=== PATIENT | male | born 1970 | race Caucasian/White ===

== ENCOUNTER 2017-05-14 02:12 | Observation (INO) | payer BC ==
--- NOTE | 2017-05-14 02:27 | ED ---
Chest Pain HPI - General Chief Complaint: Chest Pain Stated Complaint: Chest Pain Time Seen by Provider: 05/14/17 02:26 Source: patient Mode of arrival: ambulatory Limitations: no limitations - History of Present Illness Initial Comments: This patient's 47-year-old man who presents to be evaluated for chest pain that radiates to his left arm. He states that it came on at rest, initially in the afternoon, and then worsened tonight. The patient states that he previously had this and was told that it represented angina. Today's symptoms were initially mild, but now more moderate. He has not noted worsening or relieving factors. Symptoms are constant. No associated symptoms. MD Complaint: chest pain -: hour(s) Onset: during rest Pain Location: substernal Pain Radiation: LUE Severity: moderate Quality: aching Consistency: constant Improves With: nothing Worsens With: nothing Treatments Prior to Arrival: none - Related Data Home Medications Medication Instructions Recorded Confirmed No Known Home Medications [No 05/14/17 05/14/17 Known Home Medications] Allergies Allergy/AdvReac Type Severity Reaction Status Date / Time No Known Allergies Allergy Verified 05/14/17 02:20 Review of Systems ROS Statement: Those systems with pertinent positive or pertinent negative responses have been documented in the HPI. ROS Other: All systems not noted in ROS Statement are negative. Constitutional: Denies: fever, chills Respiratory: Denies: cough, dyspnea Cardiovascular: Reports: as per HPI, chest pain. Denies: palpitations, edema, syncope Gastrointestinal: Denies: abdominal pain, nausea, vomiting, diarrhea Genitourinary: Denies: dysuria, hematuria Musculoskeletal: Denies: back pain Skin: Denies: rash Neurological: Denies: headache, weakness, numbness EKG Findings - EKG Results: EKG: interpreted by BRUCE WONG, sinus rhythm (Rate 62 bpm), normal axis, normal QRS, normal ST/T, no acute changes - MS, Pacemaker, Normal: Normal tracing: normal tracing Past Medical History Past Medical History: Chest Pain / Angina History of Any Multi-Drug Resistant Organisms: None Reported Past Surgical History: Orthopedic Surgery Additional Past Surgical History / Comment(s): Right shoulder Past Psychological History: No Psychological Hx Reported Smoking Status: Never smoker Past Alcohol Use History: Occasional Past Drug Use History: None Reported General Exam Limitations: no limitations General appearance: alert, in no apparent distress Head exam: Present: atraumatic, normocephalic Eye exam: Present: normal appearance. Absent: scleral icterus, conjunctival injection Neck exam: Present: normal inspection, full ROM Respiratory exam: Present: normal lung sounds bilaterally. Absent: respiratory distress, wheezes, rales, rhonchi, stridor, chest wall tenderness Cardiovascular Exam: Present: regular rate, normal rhythm, normal heart sounds. Absent: systolic murmur, diastolic murmur, rubs, gallop GI/Abdominal exam: Present: soft. Absent: distended, tenderness, guarding, rebound, mass Extremities exam: Present: normal inspection, normal capillary refill. Absent: pedal edema, calf tenderness Back exam: Present: normal inspection. Absent: CVA tenderness (R), CVA tenderness (L) Neurological exam: Present: alert Skin exam: Present: warm, dry, intact, normal color. Absent: rash Course Vital Signs 05/14/17 05/14/17 05/14/17 02:16 03:12 03:36 Temperature 97.4 F L Pulse Rate 61 58 L 57 L Respiratory 20 16 16 Rate Blood Pressure 139/75 130/74 O2 Sat by Pulse 99 98 98 Oximetry 05/14/17 05/14/17 05/14/17 03:42 03:45 05:36 Temperature 97.6 F Pulse Rate 67 53 L Respiratory 16 16 Rate Blood Pressure 117/60 113/56 133/63 O2 Sat by Pulse 97 99 Oximetry Disposition Clinical Impression: Chest pain Disposition: ADMITTED IP TO THIS [facility] Condition: Good Referrals: Nitish Gillespie MD [Primary Care Provider] - 1-2 days
[2017-05-14] MEDS ORDERED: NITROGLYCERIN SL TABS 0.4 MG TAB SUBLINGUAL STA (02:36)
[2017-05-14] MEDS ORDERED: ASPIRIN 81 MG PO STA (02:36)
[2017-05-14 02:51] LABS: Basophils % (A) 0 %; Eosinophils # (A) 0.1 k/uL (0-0.7); Eosinophils % (A) 2 %; HCT 47.4 % (39.0-53.0); HGB 16.1 gm/dL (13.0-17.5); Lymphocytes % (A) 29 %; MCHC 33.9 g/dL (31.0-37.0); MCV 91.3 fL (80.0-100.0); Mean Platelet Volume 7.1; Monocytes # (A) 0.6 k/uL (0-1.0); Monocytes % (A) 8 %; Neutrophils # (A) 4.1 k/uL (1.3-7.7); Neutrophils % (A) 59 %; Platelet Count 257 k/uL (150-450); RDW 12.4 % (11.5-15.5)
[2017-05-14 02:59] LABS: D-Dimer 0.38 mg/L FEU (<0.60); Partial Thromboplastin Time 22.6 sec (22.0-30.0); Prothrombin Time 9.6 sec (9.0-12.0)
--- NOTE | 2017-05-14 03:09 | XR ---
EXAM: XR Chest, 1 View CLINICAL HISTORY: Chest pain TECHNIQUE: Frontal view of the chest. COMPARISON: No relevant prior studies available. FINDINGS: Lungs: Hypoventilatory examination. Nonspecific bibasilar opacities. Pleural space: Unremarkable. No pneumothorax. Heart: Prominence of the cardiomediastinal silhouette is likely in part due to low lung volumes. Mediastinum: Prominence of the central bronchovascular structures is likely in part due to volume loss. Bones/joints: No acute osseous abnormality. IMPRESSION: Hypoventilatory examination. Nonspecific bibasilar opacities may represent atelectasis. An infectious or inflammatory process is not excluded.
[2017-05-14 03:14] LABS: ALT 37 U/L (21-72); AST 24 U/L (17-59); Albumin 4.2 g/dL (3.5-5.0); Alkaline Phosphatase 113 U/L (38-126); Amylase 34 U/L (30-110); Anion Gap 12 mmol/L; Blood Urea Nitrogen 20 mg/dL (9-20); Calcium 10.1 mg/dL (8.4-10.2); Carbon Dioxide 23 mmol/L (22-30); Chloride 106 mmol/L (98-107); Glucose 119 mg/dL (74-99); Lipase 51 U/L (23-300); Potassium 4.2 mmol/L (3.5-5.1); Sodium 141 mmol/L (137-145); Total Bilirubin 0.3 mg/dL (0.2-1.3); Total Protein 6.7 g/dL (6.3-8.2)
[2017-05-14 03:17] LABS: Creatine Kinase 246 U/L (55-170)
[2017-05-14 03:30] LABS: Creatine Kinase MB 1.5 ng/mL (0.0-2.4); Troponin I <0.012 ng/mL (0.000-0.034)
[2017-05-14] MEDS ORDERED: MORPHINE SULFATE 4MG/4ML SYRG IVP STA (03:39)
[2017-05-14] MEDS ORDERED: NITROGLYCERIN SL TABS 0.4 MG TAB SUBLINGUAL PRN (05:33)
[2017-05-14] MEDS ORDERED: MORPHINE ORAL SOLN 10 MG/5 ML CUP PO PRN (05:57)
[2017-05-14 06:18] VITALS: BMI 34.8
[2017-05-14] MEDS ORDERED: PNEUMOCOCCAL VACC-PNEUMOVAX 23 25 MCG/0.5 ML VIAL IM ONE (06:31)
[2017-05-14 09:56] LABS: Creatine Kinase 184 U/L (55-170)
--- NOTE | 2017-05-14 09:59 | US ---
EXAMINATION TYPE: US abdomen complete DATE OF EXAM: 05/14/2017 COMPARISON: NONE CLINICAL HISTORY: ruq pain. Pt states chest/ RUQ pain EXAM MEASUREMENTS: Liver Length: 18.1 cm Gallbladder Wall: 0.2 cm CBD: 0.4 cm Spleen: 9.0 cm Right Kidney: 12.0 x 5.5 x 5.5 cm Left Kidney: 11.5 x 6.6 x 6.3 cm Pancreas: wnl, tail obscured by overlying bowel gas Liver: Enlarged Gallbladder: wnl Evidence for sonographic Cooper's sign: Yes CBD: wnl Spleen: wnl Right Kidney: wnl Left Kidney: wnl Upper IVC: wnl Abd Aorta: Ectatic, distal portion obscured by bowel gas The liver is homogenous. The intrahepatic portion of the IVC and proximal abdominal aorta are within normal limits. There is no evidence of cholelithiasis. Common bile duct is unremarkable. The visu alized portions of the pancreas are homogenous. The spleen is unremarkable. Kidneys are symmetric a nd free of hydronephrosis. No renal lesions are seen. IMPRESSION: Hepatomegaly.
[2017-05-14 10:06] LABS: Creatine Kinase MB 1.5 ng/mL (0.0-2.4); Troponin I <0.012 ng/mL (0.000-0.034)
[2017-05-14 11:52] VITALS: BP 135/65; PULSE 57; RESP 18; TEMP 97.8
--- NOTE | 2017-05-14 12:54 | P.DS ---
Providers Date of admission: 05/14/17 05:33 Expected date of discharge: 05/14/17 Attending physician: Nitish Gillespie Consults: 05/14/17 05:33 Consult Physician Routine Consulting Provider: Davi Miller Consult Reason/Comments: chest pain Do you want consulting provider notified?: Yes Primary care physician: Nitish [facility] Course: This document serves as H&P and discharge summary 47-year-old male who presented to the emergency room with a chief complaint of chest pain. The patient states he was at home resting yesterday afternoon when he started to feel some chest discomfort. He attributed this discomfort to heartburn. He states that he went to bed and around 1:30 in the morning he woke up with severe chest discomfort that radiated to his left arm. His brought him to the ER for further evaluation. The patient states his pain is currently 2/10 and describes it as "minimal discomfort". Denies chest pain currently. Denies left arm pain. Patient denies shortness of breath. Denies cough or sputum production. Denies nausea or vomiting. Denies lightheadedness or discomfort. Patient denies abdominal pain at this time but states he was having some right sided abdominal pain when the program manager slp pushed on his abdomen. The patient underwent an ultrasound of the abdomen. US revealed gallbladder is within normal limits. No evidence of cholelithiasis. Common bile duct is unremarkable. It did show hepatomegaly. CBC is within normal limits. PT and INR within normal limits. D-dimer 0.38. BMP unremarkable. CK 246 and 184. Troponins negative x 2. No further workup from a cardiology standpoint. The patient was deemed stable for discharge per Dr. Venegas. He is to follow up with Dr. Venegas tomorrow morning in the office for further evaluation. DISCHARGE DIAGNOSIS: Chest pain with radiation into left arm, troponins negative x 2, acute coronary syndrome ruled out Right side abdominal pain, US abdomen revealed gallbladder WNL and no evidence of cholelithiasis, etiology unclear, pt. to follow up with Dr. Venegas tomorrow Obesity: BMI 34.8 Nurse practitioner note has been reviewed by physician. Signing provider agrees with the documented findings, assessment, and plan of care. Patient Condition at Discharge: Stable Plan - Discharge Summary New Discharge Prescriptions: No Action No Known Home Medications [No Known Home Medications] Discharge Medication List No Known Home Medications [No Known Home Medications] 05/14/17 [History] Follow up Appointment(s)/Referral(s): Uri Venegas Jr, DO [Doctor of Osteopathic Medicine] - 1-2 Days (Appointment made for SundayMay 15 @ 10:15am.) Patient Instructions/Handouts: Angina (DC) Discharge Disposition: HOME SELF-CARE
--- NOTE | 2017-05-14 13:46 | P.CRDCN ---
History of Present Illness Consult date: 05/14/17 History of present illness: Mr. Mukherjee is a pleasant 47-year-old male past medical history significant for obesity. He denies history of coronary artery disease, hypertension, diabetes mellitus or dyslipidemia. We have been asked to see him in consultation for complaints of chest pain. He states yesterday afternoon after eating a large meal of spaghetti and garlic bread he developed pain in the right anterior chest wall yesterday. The pain was described as a gas like pain that was radiating from right to left and intermittent in nature lasting 1- 2 minutes at a time. He went to bed around and woke up around midnight feeling sweaty and turned on the fan then around 0130 woke up with same pain in the right chest wall that was sharp and this time radiated down the left arm, lasted 1-2 min and went away. The pain was much more intense this time so he decided to present to ED. He has had no further symptoms since admission. Telemetry tracings have been unremarkable. EKG reveals sinus mechanism with no acute ST or T-wave abnormalities. Chest xray shows bibasilar opacities possibly suggestive of an infectious process. Laboratory data reviewed, hemoglobin 16.1, platelets 257, d-dimer 0.3, potassium 4.2, magnesium 2.0, creatinine 1.0, cardiac enzymes negative 1. Review of Systems At the time of my exam: CONSTITUTIONAL: Denies fever. Denies chills. EYES: Denies blurred vision. Denies vision changes. Denies eye pain. EARS, NOSE, MOUTH & THROAT: Denies headache. Denies sore throat. Denies ear pain. CARDIOVASCULAR: Denies chest pain. Denies shortness of breath. Denies orthopnea. Denies PND. Denies palpitations. RESPIRATORY: Denies cough. GASTROINTESTINAL: Denies abdominal pain. Denies diarrhea. Denies constipation. Denies nausea. Denies vomiting. MUSCULOSKELETAL: Denies myalgias. INTEGUMENTARY: Denies pruitis. Denies rash. NEUROLOGIC: Denies numbness. Denies tingling. Denies weakness. PSYCHIATRIC: Denies anxiety. Denies depression. ENDOCRINE: Denies fatigue. Denies weight change. Denies polydipsia. Denies polyurina. GENITOURINARY: Denies burning, hematuria or urgency with micturation. HEMATOLOGIC: Denies history of anemia. Denies bleeding. Past Medical History Past Medical History: Chest Pain / Angina History of Any Multi-Drug Resistant Organisms: None Reported Past Surgical History: Orthopedic Surgery Additional Past Surgical History / Comment(s): Right shoulder Past Anesthesia/Blood Transfusion Reactions: No Reported Reaction Smoking Status: Never smoker - Past Family History Mother Family Medical History: Diabetes Mellitus Father Family Medical History: Hypertension Medications and Allergies Home Medications Medication Instructions Recorded Confirmed Type No Known Home Medications [No 05/14/17 05/14/17 History Known Home Medications] Allergies Allergy/AdvReac Type Severity Reaction Status Date / Time No Known Allergies Allergy Verified 05/14/17 08:20 Physical Exam Vitals: Vital Signs Temp Pulse Resp BP BP Pulse Ox 05/14/17 08:00 16 05/14/17 06:25 16 05/14/17 06:12 97.9 F 16 148/79 99 05/14/17 05:36 53 L 16 133/63 99 05/14/17 03:45 67 16 113/56 97 05/14/17 03:42 97.6 F 117/60 05/14/17 03:36 57 L 16 98 05/14/17 03:12 58 L 16 130/74 98 05/14/17 02:16 97.4 F L 61 20 139/75 99 Intake and Output 05/13/17 05/14/17 05/14/17 22:59 06:59 14:59 Other: Voiding Method Toilet # Voids 1 Weight 110.1 kg Blood pressure 140/79 heart rate 53 afebrile maintaining oxygen saturation on room air GENERAL: This is a 47-year-old occasion male in no apparent distress at the time of my examination. Obese. HEENT: Head is atraumatic, normocephalic. Pupils are equal, round. Sclerae anicteric. Conjunctivae are clear. Mucous membranes of the mouth are moist. Neck is supple. There is no jugular venous distention. No carotid bruit is heard. LUNGS: Clear to auscultation no wheezes, rales or rhonchi. No chest wall tenderness is noted on palpation or with deep breathing. HEART: Regular rate and rhythm without murmurs, rubs or gallops. S1 and S2 heard. ABDOMEN: Soft, right upper quadrant tenderness on palpation. Bowel sounds are heard. No organomegaly noted. EXTREMITIES: No evidence of peripheral edema and no calf tenderness noted. VASCULAR: Radial and dorsalis pedis pulses palpated, no evidence of clubbing. NEUROLOGIC: Patient is awake, alert and oriented x3. Results 05/14/17 02:37 05/14/17 02:37 Cardiac Enzymes 05/14/17 05/14/17 Range/Units 02:37 02:37 AST 24 (17-59) U/L CK-MB (CK-2) 1.5 (0.0-2.4) ng/mL Troponin I <0.012 (0.000-0.034) ng/mL Coagulation 05/14/17 Range/Units 02:37 PT 9.6 (9.0-12.0) sec APTT 22.6 (22.0-30.0) sec CBC 05/14/17 Range/Units 02:37 WBC 7.0 (3.8-10.6) k/uL RBC 5.20 (4.30-5.90) m/uL Hgb 16.1 (13.0-17.5) gm/dL Hct 47.4 (39.0-53.0) % Plt Count 257 (150-450) k/uL Comprehensive Metabolic Panel 05/14/17 Range/Units 02:37 Sodium 141 (137-145) mmol/L Potassium 4.2 (3.5-5.1) mmol/L Chloride 106 (98-107) mmol/L Carbon Dioxide 23 (22-30) mmol/L BUN 20 (9-20) mg/dL Creatinine 1.00 (0.66-1.25) mg/dL Glucose 119 H (74-99) mg/dL Calcium 10.1 (8.4-10.2) mg/dL AST 24 (17-59) U/L ALT 37 (21-72) U/L Alkaline Phosphatase 113 (38-126) U/L Total Protein 6.7 (6.3-8.2) g/dL Albumin 4.2 (3.5-5.0) g/dL Current Medications Generic Name Dose Route Start Last Admin Trade Name Freq PRN Reason Stop Dose Admin Aspirin 325 mg 05/15/17 09:00 Aspirin PO DAILY MARIANA Morphine Sulfate 12 mg 05/14/17 05:57 05/14/17 06:21 Morphine Oral Casi 2mg/Ml PO 12 mg Q4HR PRN Administration Chest Pain Nitroglycerin 0.4 mg 05/14/17 05:33 05/14/17 08:06 Nitrostat SUBLINGUAL 0.4 mg Q5M PRN Administration Chest Pain Intake and Output 05/13/17 05/14/17 05/14/17 22:59 06:59 14:59 Other: Voiding Method Toilet # Voids 1 Weight 110.1 kg 05/14/17 02:37 05/14/17 02:37 Assessment and Plan Assessment: ASSESSMENT 1. Chest pain, atypical 2. Abdominal pain 3. Obesity PLAN Continue to obtain serial cardiac enzymes to rule out acute coronary event. Obtain ultrasound of the abdomen to assess for gallbladder dysfunction. Further recommendations to follow. Thank you kindly for this consultation. Nurse Practitioner note has been reviewed, I agree with a documented findings and plan of care. Patient was seen and examined.
[2017-05-15] MEDS ORDERED: ASPIRIN 325 MG TAB PO SCH (09:00)
== END 2017-05-14 13:08 | disposition home or self-care (01) ==
LOC: EC 02:12 → 3OBS 05:33
PROVIDERS: ADMIT Family Medicine; ATTEND Family Medicine
DX: R07.89 Other chest pain (principal); R10.11 Right upper quadrant pain; E66.9 Obesity, unspecified; Z68.34 Body mass index [BMI] 34.0-34.9, adult; R61 Generalized hyperhidrosis; Z82.49 Family history of ischemic heart disease and other diseases of the circulatory system; Z83.3 Family history of diabetes mellitus; Z23 Encounter for immunization
CPT/HCPCS: 36415; 71045; 76700; 80053; 82150; 82550; 82553; 83690; 83735; 84484; 85025; 85379; 85610; 85730; 90732; 93005; 96374; 99285

== ENCOUNTER → 2017-05-16 | Outpatient (CLI) | payer BC ==
--- NOTE | 2017-05-16 10:33 | NM ---
EXAMINATION TYPE: NM stress cardiolite complete DATE OF EXAM: 05/16/2017 COMPARISON: NONE HISTORY: Chest pain TECHNIQUE: After the intravenous administration of 10.21 mCi Tc 99m Sestamibi - Rest images obtained 65 minutes post injection. The patient exercised using a JAKE protocol and 1 minute prior to peak exercise was injected with 26 mCi Tc 99m Sestamibi - Stress images obtained 10 minutes post injectio n. FINDINGS: No fixed defects are evident. There is subtle diminished radiotracer accumulation along the anterior lateral wall on the stress images. This radiotracer accumulation appears more normal on the resting i mages. Gated wall motion is normal. The ejection fraction of 50% is within normal limits. Polar maps suggest a reversible defect along the anterior lateral wall. This finding may be subtle on the SPECT imaging. IMPRESSION: 1. Clinical consideration of mild stress-induced ischemic change anterior lateral wall.
--- NOTE | 2017-05-17 08:44 | ECHOF ---
Referral Reason:R07.1 chest pain on breathing MEASUREMENTS -------- HEIGHT: 177.8 cm WEIGHT: 108.0 kg BP: 154/98 RVIDd: 2.8 cm (< 3.3) IVSd: 1.1 cm (0.6 - 1.1) LVIDd: 4.9 cm (3.9 - 5.3) LVPWd: 1.1 cm (0.6 - 1.1) IVSs: 1.5 cm LVIDs: 3.1 cm LVPWs: 1.5 cm LAESV Index (A-L): 22.75 ml/m Ao Diam: 3.4 cm (2.0 - 3.7) AV Cusp: 2.0 cm (1.5 - 2.6) LA Diam: 3.2 cm (2.7 - 3.8) MV EXCURSION: 12.148 mm (> 18.000) MV EF SLOPE: 55 mm/s (70 - 150) EPSS: 1.2 cm MV E Andre: 0.96 m/s MV DecT: 393 ms MV A Andre: 1.02 m/s MV E/A Ratio: 0.94 AV maxP.98 mmHg AV meanP.16 mmHg RAP: 5.00 mmHg RVSP: 12.42 mmHg FINDINGS -------- Sinus rhythm. This was a technically adequate study. The left ventricular size is normal. There is borderline concentric left ventricular hypertrophy. Overall left ventricular systolic function is normal with, an EF between 55 - 60 %. The right ventricle is normal in size and function. Normal LA size by volume 22+/-6 ml/m2. The right atrium is normal in size. Aortic valve is trileaflet and is mildly thickened. There is no evidence of aortic regurgitation. There is no evidence of aortic stenosis. The mitral valve leaflets are mildly thickened. There is trace to mild mitral regurgitation. Trace tricuspid regurgitation present. Right ventricular systolic pressure is normal at < 35 mmHg. There is no evidence of pulmonary hypertension. Trace/mild (physiologic) pulmonic regurgitation. The aortic root size is normal. Normal inferior vena cava with normal inspiratory collapse consistent with estimated right atrial pre ssure of 5 mmHg. There is no pericardial effusion. CONCLUSIONS -------- 1. Sinus rhythm. 2. This was a technically adequate study. 3. The left ventricular size is normal. 4. There is borderline concentric left ventricular hypertrophy. 5. Overall left ventricular systolic function is normal with, an EF between 55 - 60 %. 6. Normal LA size by volume 22+/-6 ml/m2. 7. Aortic valve is trileaflet and is mildly thickened. 8. The mitral valve leaflets are mildly thickened. 9. There is trace to mild mitral regurgitation. 10. Trace tricuspid regurgitation present. 11. Right ventricular systolic pressure is normal at < 35 mmHg. 12. There is no evidence of pulmonary hypertension. 13. Trace/mild (physiologic) pulmonic regurgitation. 14. The aortic root size is normal. 15. There is no pericardial effusion. DOOR CLOSER MECHANIC: David Peraza RDCS
--- NOTE | 2017-05-17 09:36 | EST ---
EXERCISE STRESS DATE OF SERVICE: 05/16/2017 AGE: 47 SEX: Male HT: 5'10" WT: 238 pounds PROTOCOL: Cardiolite STAGE: IV DURATION OF EXERCISE: 11 minutes HEART RATE REST: 56 BLOOD PRESSURE REST: 145/83 MAXIMUM HEART RATE ACHIEVED: 146 MAXIMUM BLOOD PRESSURE: 204/63 85% MPHR: 146 100% MPHR: 172 METS: 12.1 INDICATIONS: Chest pain. CLINICAL INFORMATION: Patient admitted with chest pain. Baseline heart rate 56 beats per minute. Baseline blood pressure 145/83 mmHg. Baseline 12-lead ECG shows normal sinus rhythm with early repolarization abnormality. Patient exercised on Edson protocol for 11 minutes achieving a peak heart rate of 146 beats per minute. There was no ECG evidence for ischemia. No arrhythmias were noted. Hypertensive response to exercise was noted. Peak blood pressure was 204/63 mmHg. Hypertensive response to exercise was noted. No arrhythmias noted. MMODL / IJN: [id number] /
== END | disposition home or self-care (01) ==
LOC: RADNMMAIN 06:56
PROVIDERS: ATTEND Family Medicine
DX: I08.0 Rheumatic disorders of both mitral and aortic valves (principal); R94.31 Abnormal electrocardiogram [ECG] [EKG]; R03.0 Elevated blood-pressure reading, without diagnosis of hypertension; R07.1 Chest pain on breathing
CPT/HCPCS: 93017; 93306; 78452; A9500

== ENCOUNTER 2017-06-11 10:44 | Day surgery (SDC) | payer BC ==
[2017-06-07 17:41] VITALS: BMI 34.4
[~2017-06-11 10:44] MED LIST: ALPRAZolam 0.25 MG TAB PO PRN; ASPIRIN 325 MG TAB PO ONE; SODIUM CHLORIDE 0.9% 1,000 ML in EMPTY BAG 1 BAG IV ONE
[2017-06-11] MEDS ORDERED: IV FLUID CONTINUATION 900 ML IV ONE (12:08)
[2017-06-11] MEDS ORDERED: fentaNYL (PF) 50 MCG/ML 2 ML AMP ONE (12:12)
[2017-06-11] MEDS ORDERED: MIDAZOLAM 2 MG/2 ML VIAL ONE (12:12)
[2017-06-11] MEDS ORDERED: MIDAZOLAM 2 MG/2 ML VIAL IV ONE (12:18)
[2017-06-11] MEDS: fentaNYL (PF) 50 MCG/ML 2 ML AMP IV ONE ×2 (12:22→12:49)
[2017-06-11] MEDS ORDERED: LIDOCAINE 2% (PF) 20 MG/ML 2 ML AMP SQ ONE (12:24)
[2017-06-11] MEDS ORDERED: LIDOCAINE 2% INJ 20 MG/ML SQ ONE (12:24)
[2017-06-11] MEDS ORDERED: IOPAMIDOL-370 125ML BTL INJ ONE (12:39)
[2017-06-11] MEDS ORDERED: RX INFO: IV CONTRAST WAS GIVEN 1 EACH MISC MISCELLANE PRN (12:56)
[2017-06-11] MEDS ORDERED: SODIUM CHLORIDE 0.9% 1,000 ML IV SCH (13:00)
[2017-06-11 13:59] VITALS: RESP 16; TEMP 98.9
[2017-06-11 15:16] VITALS: BP 115/66; PULSE 57
--- NOTE | 2017-06-11 15:35 | CC ---
CARDIAC CATHETERIZATION REPORT This patient was recently evaluated by Dr. Marks for symptoms of angina. Stress test was positive for anterior wall ischemia. In view of that, the patient was recommended to have a cardiac catheterization for definitive diagnosis. PROCEDURE: The right groin was prepped and draped in the usual manner and the skin was infiltrated with 2% Xylocaine. The right femoral artery was entered using Seldinger technique. A #6- Tristanian sheath was placed in. Selective coronary angiography was then performed in multiple projections and the left ventriculography was performed in 30 degree EAST projection. Patient tolerated the procedure well. HEMODYNAMICS: Left ventricular end-diastolic pressure is 8-10 mmHg prior to angiography. No gradient is noted across the aortic valve. SELECTIVE CORONARY ANGIOGRAPHY: Left main coronary artery is normal and patent. It gives rise to a good size diagonal branch. The circumflex coronary artery is a good caliber blood vessel and gives rise to a good size obtuse marginal branch. Circumflex coronary artery and its branches are normal. Right coronary artery is dominant in distribution and gives rise to good size PLV and PDA branches and is normal. Left ventriculography reveals normal left ventricular systolic function. FINAL IMPRESSION: This study reveals normal coronary arteries. Left ventricular systolic function is normal. RECOMMENDATIONS: Medical treatment. MMODL / IJN: [id number] /
== END 2017-06-11 19:05 | disposition home or self-care (01) ==
LOC: CATHCVL 10:44 → 3OBS 12:46 → CATHCVL 19:05
PROVIDERS: ATTEND Internal Medicine Cardiovascular Disease
DX: R94.39 Abnormal result of other cardiovascular function study (principal); R07.89 Other chest pain; R00.2 Palpitations; Z79.82 Long term (current) use of aspirin; Z79.899 Other long term (current) drug therapy
CPT/HCPCS: 93458; C1760; C1894; C1769; J2001; J2250; J3010; Q9967

== ENCOUNTER 2020-09-30 09:14 | Emergency (ER) | payer BC, OTHER ==
[2020-09-30] MEDS ORDERED: BACITRACIN OINT 1 EACH PACKET TOPICAL ONE (09:56)
[2020-09-30] MEDS ORDERED: LIDOCAINE 1% INJ 10MG/ML (20 ML MDV) SQ ONE (09:56)
[2020-09-30] MEDS ORDERED: ONDANSETRON ODT 4 MG TAB PO STA (09:57)
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
[2020-09-30] MEDS ORDERED: IBUPROFEN 600 MG TAB PO STA (11:19)
[2020-09-30 11:59] VITALS: BP 151/91; PULSE 62; RESP 18; TEMP 98.5
== END 2020-09-30 12:03 | disposition home or self-care (01) ==
LOC: EC 09:14
DX: S01.511A Laceration without foreign body of lip, initial encounter (principal); S06.0X1A Concussion with loss of consciousness of 30 minutes or less, initial encounter; E78.5 Hyperlipidemia, unspecified; I10 Essential (primary) hypertension; Y04.0XXA Assault by unarmed brawl or fight, initial encounter
CPT/HCPCS: 99284; 12011; 72125; 70486; 70450; J2001

== ENCOUNTER 2020-12-13 15:52 | Emergency (ER) | payer BC ==
[2020-12-13 16:47] VITALS: RESP 18; TEMP 97.9
[2020-12-13] MEDS ORDERED: HYDROmorphone 1 MG/ML 1 ML SYRINGE IVP STA (18:01)
[2020-12-13] MEDS ORDERED: SODIUM CHLORIDE 0.9% 1,000 ML IV STA (18:01)
--- NOTE | 2020-12-13 18:07 | ED ---
General Adult HPI - General Chief complaint: Urogenital Stated complaint: possible kidney stone Time Seen by Provider: 12/13/20 17:57 Source: patient, family, RN notes reviewed Mode of arrival: ambulatory Limitations: no limitations - History of Present Illness Initial comments: Patient is a pleasant 50-year-old male presenting to the emergency department with concerns for right flank pain. Onset of symptoms was yesterday. Symptoms are because they weren't since that time. Most discomfort is right lower back. Patient also has some mild right front/flank pain. Patient states discomfort does radiate towards the testicle. No nausea vomiting. No fevers. Discomfort does increase somewhat with urination. Discomfort also increases somewhat with position changes. No history of similar symptoms previously. - Related Data Previous Rx's Medication Instructions Recorded Amoxicillin/Potassium Clav 1 tab PO BID 5 Days #10 tab 09/30/20 [Augmentin 875-125 Tablet] Allergies Allergy/AdvReac Type Severity Reaction Status Date / Time No Known Allergies Allergy Verified 12/13/20 16:47 Review of Systems ROS Statement: Those systems with pertinent positive or pertinent negative responses have been documented in the HPI. ROS Other: All systems not noted in ROS Statement are negative. Constitutional: Denies: fever Eyes: Denies: eye pain ENT: Denies: ear pain Respiratory: Denies: cough, dyspnea Cardiovascular: Denies: chest pain Endocrine: Denies: fatigue Gastrointestinal: Reports: as per HPI, abdominal pain. Denies: vomiting Genitourinary: Reports: as per HPI Musculoskeletal: Reports: as per HPI, back pain Skin: Denies: rash Neurological: Denies: weakness Past Medical History Past Medical History: Chest Pain / Angina, Hyperlipidemia, Hypertension Additional Past Medical History / Comment(s): SEEN IN ER 05/14/17 FOR CHEST PAIN., SEE CARDIOLOGY H & P. History of Any Multi-Drug Resistant Organisms: None Reported Past Surgical History: Orthopedic Surgery Additional Past Surgical History / Comment(s): Right Rotator Cuff., Teeth Extraction . Past Anesthesia/Blood Transfusion Reactions: No Reported Reaction, Motion Sickness Past Psychological History: No Psychological Hx Reported Smoking Status: Never smoker Past Alcohol Use History: Occasional Past Drug Use History: None Reported - Past Family History Mother Family Medical History: Diabetes Mellitus Father Family Medical History: Hypertension General Exam Limitations: no limitations General appearance: alert, in no apparent distress Head exam: Present: normocephalic Eye exam: Present: normal appearance Neck exam: Present: normal inspection Respiratory exam: Present: normal lung sounds bilaterally Cardiovascular Exam: Present: regular rate, normal rhythm Expanded Peripheral pulses: 2+: Posterior Tibialis (R), Posterior Tibialis (L) GI/Abdominal exam: Present: soft, tenderness (Mild tenderness right lower abdomen). Absent: guarding, rebound, rigid, pulsatile mass Extremities exam: Present: normal inspection. Absent: pedal edema, calf tenderness Back exam: Present: CVA tenderness (R) (And just inferior to this) Neurological exam: Present: alert Psychiatric exam: Present: normal affect, normal mood Skin exam: Present: normal color Course Vital Signs 12/13/20 16:42 Temperature 97.9 F Pulse Rate 70 Respiratory 18 Rate Blood Pressure 154/92 O2 Sat by Pulse 98 Oximetry Medical Decision Making - Medical Decision Making Patient reevaluated and resting comfortably at bedside. Patient is updated on results and need for follow-up. Also updated and need to return for worsening symptoms. - Lab Data Result diagrams: 12/13/20 18:53 12/13/20 18:53 Lab Results 12/13/20 12/13/20 12/13/20 Range/Units 18:53 18:53 18:53 WBC 8.8 (3.8-10.6) k/uL RBC 5.26 (4.30-5.90) m/uL Hgb 17.2 (13.0-17.5) gm/dL Hct 49.6 (39.0-53.0) % MCV 94.3 (80.0-100.0) fL MCH 32.7 (25.0-35.0) pg MCHC 34.6 (31.0-37.0) g/dL RDW 12.2 (11.5-15.5) % Plt Count 253 (150-450) k/uL MPV 7.0 Neutrophils % 82 % Lymphocytes % 12 % Monocytes % 4 % Eosinophils % 0 % Basophils % 0 % Neutrophils # 7.3 (1.3-7.7) k/uL Lymphocytes # 1.1 (1.0-4.8) k/uL Monocytes # 0.4 (0-1.0) k/uL Eosinophils # 0.0 (0-0.7) k/uL Basophils # 0.0 (0-0.2) k/uL PT 10.3 (9.0-12.0) sec INR 1.0 (<1.2) APTT 22.2 (22.0-30.0) sec Sodium (137-145) mmol/L Potassium (3.5-5.1) mmol/L Chloride (98-107) mmol/L Carbon Dioxide (22-30) mmol/L Anion Gap mmol/L BUN (9-20) mg/dL Creatinine (0.66-1.25) mg/dL Est GFR (CKD-EPI)AfAm (>60 ml/min/1.73 sqM) Est GFR (CKD-EPI)NonAf (>60 ml/min/1.73 sqM) Glucose (74-99) mg/dL Calcium (8.4-10.2) mg/dL Total Bilirubin (0.2-1.3) mg/dL AST (17-59) U/L ALT (4-49) U/L Alkaline Phosphatase (38-126) U/L Total Protein (6.3-8.2) g/dL Albumin (3.5-5.0) g/dL Amylase (30-110) U/L Lipase (23-300) U/L Urine Color Yellow Urine Appearance Cloudy (Clear) Urine pH 5.5 (5.0-8.0) Ur Specific [place] 1.023 (1.001-1.035) Urine Protein Trace H (Negative) Urine Glucose (UA) Negative (Negative) Urine Ketones 1+ H (Negative) Urine Blood Small H (Negative) Urine Nitrite Negative (Negative) Urine Bilirubin Negative (Negative) Urine Urobilinogen <2.0 (<2.0) mg/dL Ur Leukocyte Esterase Negative (Negative) Urine RBC 2 (0-5) /hpf Urine WBC 3 (0-5) /hpf Ur Squamous Epith Cells 1 (0-4) /hpf Urine Mucus Many H (None) /hpf 12/13/20 Range/Units 18:53 WBC (3.8-10.6) k/uL RBC (4.30-5.90) m/uL Hgb (13.0-17.5) gm/dL Hct (39.0-53.0) % MCV (80.0-100.0) fL MCH (25.0-35.0) pg MCHC (31.0-37.0) g/dL RDW (11.5-15.5) % Plt Count (150-450) k/uL MPV Neutrophils % % Lymphocytes % % Monocytes % % Eosinophils % % Basophils % % Neutrophils # (1.3-7.7) k/uL Lymphocytes # (1.0-4.8) k/uL Monocytes # (0-1.0) k/uL Eosinophils # (0-0.7) k/uL Basophils # (0-0.2) k/uL PT (9.0-12.0) sec INR (<1.2) APTT (22.0-30.0) sec Sodium 138 (137-145) mmol/L Potassium 4.1 (3.5-5.1) mmol/L Chloride 107 (98-107) mmol/L Carbon Dioxide 21 L (22-30) mmol/L Anion Gap 10 mmol/L BUN 16 (9-20) mg/dL Creatinine 0.93 (0.66-1.25) mg/dL Est GFR (CKD-EPI)AfAm >90 (>60 ml/min/1.73 sqM) Est GFR (CKD-EPI)NonAf >90 (>60 ml/min/1.73 sqM) Glucose 122 H (74-99) mg/dL Calcium 10.2 (8.4-10.2) mg/dL Total Bilirubin 0.7 (0.2-1.3) mg/dL AST 28 (17-59) U/L ALT 35 (4-49) U/L Alkaline Phosphatase 118 (38-126) U/L Total Protein 7.9 (6.3-8.2) g/dL Albumin 4.7 (3.5-5.0) g/dL Amylase 45 (30-110) U/L Lipase 27 (23-300) U/L Urine Color Urine Appearance (Clear) Urine pH (5.0-8.0) Ur Specific [place] (1.001-1.035) Urine Protein (Negative) Urine Glucose (UA) (Negative) Urine Ketones (Negative) Urine Blood (Negative) Urine Nitrite (Negative) Urine Bilirubin (Negative) Urine Urobilinogen (<2.0) mg/dL Ur Leukocyte Esterase (Negative) Urine RBC (0-5) /hpf Urine WBC (0-5) /hpf Ur Squamous Epith Cells (0-4) /hpf Urine Mucus (None) /hpf - Radiology Data Radiology results: report reviewed (Ultrasound shows small bilateral hydroceles. No torsion. Computed tomography scan abdomen pelvis shows no acute abnormality.) Disposition Clinical Impression: Flank pain Disposition: HOME SELF-CARE Condition: Stable Instructions (If sedation given, give patient instructions): Flank Pain (ED) Additional Instructions: Please do follow-up with primary care physician in the next one to 2 days for recheck. Return for fevers, increased pain, urinary problems, swelling, change or worsening symptoms or other concerns. Is patient prescribed a controlled substance at d/c from ED?: No Referrals: Nitish Gillespie MD [Primary Care Provider] - 1-2 days Time of Disposition: 20:37
[2020-12-13 19:11] LABS: Basophils % (A) 0 %; Eosinophils % (A) 0 %; HCT 49.6 % (39.0-53.0); HGB 17.2 gm/dL (13.0-17.5); Lymphocytes # (A) 1.1 k/uL (1.0-4.8); Lymphocytes % (A) 12 %; MCH 32.7 pg (25.0-35.0); MCHC 34.6 g/dL (31.0-37.0); MCV 94.3 fL (80.0-100.0); Monocytes # (A) 0.4 k/uL (0-1.0); Monocytes % (A) 4 %; Neutrophils # (A) 7.3 k/uL (1.3-7.7); Neutrophils % (A) 82 %; Platelet Count 253 k/uL (150-450); RBC 5.26 m/uL (4.30-5.90); RDW 12.2 % (11.5-15.5); WBC 8.8 k/uL (3.8-10.6)
[2020-12-13 19:15] LABS: ALT 35 U/L (4-49); AST 28 U/L (17-59); African American GFR (CKD) >90 (>60 ml/min/1.73 sqM); Albumin 4.7 g/dL (3.5-5.0); Alkaline Phosphatase 118 U/L (38-126); Amylase 45 U/L (30-110); Anion Gap 10 mmol/L; Blood Urea Nitrogen 16 mg/dL (9-20); Calcium 10.2 mg/dL (8.4-10.2); Carbon Dioxide 21 mmol/L (22-30); Chloride 107 mmol/L (98-107); Glucose 122 mg/dL (74-99); Lipase 27 U/L (23-300); Non-African American GFR(CKD) >90 (>60 ml/min/1.73 sqM); Potassium 4.1 mmol/L (3.5-5.1); Sodium 138 mmol/L (137-145); Total Bilirubin 0.7 mg/dL (0.2-1.3); Total Protein 7.9 g/dL (6.3-8.2)
[2020-12-13 19:19] LABS: Partial Thromboplastin Time 22.2 sec (22.0-30.0); Prothrombin Time 10.3 sec (9.0-12.0)
[2020-12-13 19:53] LABS: Appearance,Urine Cloudy (Clear); Bilirubin,Urine Negative (Negative); Blood,Urine Small (Negative); Color,Urine Yellow; Glucose,Urine (UA) Negative (Negative); Ketones,Urine 1+ (Negative); Leukocyte Esterase,Urine Negative (Negative); Mucus,Urine Many /hpf; Nitrite,Urine Negative (Negative); PH, Urine 5.5 (5.0-8.0); Protein,Urine Trace (Negative); RBC,Urine 2 /hpf (0-5); Specific Gravity,Urine 1.023 (1.001-1.035); Squamous Epithelial Cell,Urine 1 /hpf (0-4); Urobilinogen,Urine <2.0 mg/dL (<2.0); WBC,Urine 3 /hpf (0-5)
--- NOTE | 2020-12-13 19:59 | CT ---
EXAMINATION TYPE: CT abdomen pelvis wo con DATE OF EXAM: 12/13/2020 COMPARISON: None HISTORY: Abdominal pain, RT flank pain CT DLP: 988.7 mGycm Automated exposure control for dose reduction was used. Images obtained from the diaphragm to the floor the pelvis without contrast. Lung bases are clear. There is no pleural effusion. Heart size is normal. There is no pericardial eff usion. Liver spleen stomach pancreas gallbladder appear intact. Bile ducts are not dilated. There is no adrenal mass. Kidneys have normal size. There is no hydronephrosis. Ureters are not dilat ed. There is 3 mm calculus lower pole left kidney. There is no retroperitoneal adenopathy. Appendix i s posterior and appears normal. Bladder distends smoothly. There is no inguinal hernia. There is no f ree fluid in the pelvis. There is no evidence of pelvic mass. There is no mesenteric edema. There is no ascites or free air. There is no bowel obstruction. There a re multiple sigmoid diverticula. There is no diverticulitis. The lumbar vertebra have normal alignment. There is vacuum disc at L5-S1. IMPRESSION: Nonobstructing left renal calculus. Sigmoid diverticulosis. No sign of acute abdomen and pelvis.
--- NOTE | 2020-12-13 20:31 | US ---
EXAMINATION TYPE: US scrotum with doppler. Grayscale and color Doppler Duplex imaging performed of romi jeffery scrotum. DATE OF EXAM: 12/13/2020 COMPARISON: CT CLINICAL HISTORY: pain. Pain within right testicle. EXAM MEASUREMENTS: TESTICLES: Right Testicle: 4.1 x 3.2 x 1.9 cm Left Testicle: 3.6 x 2.9 x 2.0 cm *Small hyperechoic foci seen throughout bilateral testicles. Measure up to 0.08 cm on the right and 0 .06 cm on the left. EPIDIDYMIS HEAD: Right Epididymis: 0.8 x 0.8 x 1.0 cm Left Epididymis: 0.4 x 0.9 x 1.0 cm Doppler performed to assess for testicular vascularity; bilateral color flow and waveforms are seen. Presence of hydroceles: Right: 2.5 x 0.8 x 0.4 cm. Left: 2.1 x 0.5 x 0.4 cm. Presence of varicoceles: Vessels measure up to 0.19 cm on the right and 0.28 cm on the left. *Heterogeneous appearance within both testicles appears to be prominent rete testis appearance bilate rally. IMPRESSION: Small bilateral hydroceles. No testicular torsion or mass.
[2020-12-13] MEDS ORDERED: ACET/COD 300 MG/30 MG STARTER PACK 6 TAB BTL PO STA (20:36)
[2020-12-13 20:45] VITALS: BP 142/82; PULSE 57
== END 2020-12-13 20:45 | disposition home or self-care (01) ==
LOC: EC 15:52
DX: R10.31 Right lower quadrant pain (principal); I10 Essential (primary) hypertension; E78.5 Hyperlipidemia, unspecified
CPT/HCPCS: 99284; 96374; 36415; 80053; 82150; 83690; 85025; 85610; 85730; 81001; 93975; 76870; 74176; J1170

== ENCOUNTER → 2023-04-12 | Outpatient (CLI) | payer OTHER ==
--- NOTE | 2023-04-12 09:54 | XR ---
EXAMINATION TYPE: XR chest 2V DATE OF EXAM: 04/12/2023 COMPARISON: NONE HISTORY: Shortness of breath TECHNIQUE: Frontal and lateral views of the chest are obtained. FINDINGS: Scattered senescent parenchymal changes noted. No evidence for infiltrate. No evidence for atelectasis. Heart size is stable. Mediastinal structures are stable and grossly unremarkable. No evidence for hilar prominence. Degenerative changes dorsal spine. IMPRESSION: 1. No evidence for acute pulmonary disease.
--- NOTE | 2023-04-12 09:55 | XR ---
EXAMINATION TYPE: XR ribs LT DATE OF EXAM: 04/12/2023 CLINICAL HISTORY: Pain, Fall Four views of the ribs fail demonstrate evidence for displaced rib fracture or secondary sign of rib fracture. Visualized lungs are clear. No evidence for pneumothorax. IMPRESSION: No displaced rib fractures seen. ICD 10 NO FRACTURE, INITIAL EVALUATION
== END | disposition home or self-care (01) ==
LOC: RADXRMAIN 09:25
PROVIDERS: ATTEND Emergency Medicine
DX: S20.212A Contusion of left front wall of thorax, initial encounter (principal); R07.81 Pleurodynia; R06.02 Shortness of breath; W19.XXXA Unspecified fall, initial encounter
CPT/HCPCS: 71046